=== PATIENT | female | born 1965 | race Caucasian/White ===

== ENCOUNTER → 2024-02-10 11:16 | Outpatient (REF) | payer BC, SELFPAY | LOC: WDC 11:16 | PROVIDERS: ATTENDING PHYSICIAN Obstetrics & Gynecology; FAMILY PHYSICIAN Family Medicine | DX: Z12.31 Encounter for screening mammogram for malignant neoplasm of breast (principal) | CPT/HCPCS: 77063; 77067 ==

== ENCOUNTER → 2024-05-06 14:39 | Outpatient (REF) | payer BC, SELFPAY | LOC: HWRAD 14:39 | PROVIDERS: ATTENDING PHYSICIAN Obstetrics & Gynecology; FAMILY PHYSICIAN Family Medicine | DX: N95.0 Postmenopausal bleeding (principal) | CPT/HCPCS: 76830; 76856 ==

== ENCOUNTER 2024-08-17 06:41 | Day surgery (SDC) | payer BC, SELFPAY ==
[2024-08-17] VITALS (9 sets, daily range): BP systolic 82–123; BP diastolic 52–77; BMI 23.7
== END 2024-08-17 11:10 | disposition home or self-care (01) ==
LOC: SDS 06:41
PROVIDERS: ATTENDING PHYSICIAN Obstetrics & Gynecology
DX: N88.2 Stricture and stenosis of cervix uteri (principal); N95.0 Postmenopausal bleeding; Z98.890 Other specified postprocedural states
CPT/HCPCS: 58558; 88305